=== PATIENT | female | born 1960 | race Caucasian/White ===

== ENCOUNTER 2016-12-25 08:36 | Emergency (ER) | payer BC ==
[~2016-12-25] VITALS: Ht 167.6 cm; Wt 74.0 kg
[~2016-12-25 08:36] MED LIST: AMLO-218 PO; CLON-379 PO; NORVASC PO
[2016-12-25 08:40] VITALS: Ht 167.6 cm; Wt 74.0 kg
[2016-12-25] MEDS ORDERED: ASPIRIN 325 MG TAB PO STA (08:48)
[2016-12-25] MEDS ORDERED: NITROGLYCERIN (SL) 0.4 MG TAB SL ONE (09:00)
--- NOTE | 2016-12-25 09:12 | RADRPT ---
PROCEDURE: XR Chest. CLINICAL INDICATION: Chest Pain. TECHNIQUE: Single frontal view of the chest was obtained. COMPARISON: None. FINDINGS: The heart and mediastinum are within normal limits. The lungs are clear. The aortic arch is calcified. There is no significant pleural effusion or pneumothorax. IMPRESSION: No focal infiltrates or effusions. Aortic atherosclerosis. RPTAT: EE Physician [place] Date Time Electronically viewed and signed by Fidencio Thompson Physician on 12/25/2016 09:11 /
[2016-12-25 09:28] LABS: ADD SCAN DIFF NO
[2016-12-25] MEDS ORDERED: AMLO2.5T2 PO (09:29)
[2016-12-25 09:31] LABS: BASOPHIL # 0.1 10^3/ul (0.0-0.1); BASOPHILS % 0.8 % (0.0-2.0); EOSINOPHILS # 0.1 10^3/ul (0.0-0.5); EOSINOPHILS % 1.5 % (0.0-7.0); HEMATOCRIT 46.6 % (37.0-47.0); HEMOGLOBIN 15.7 g/dl (12.0-16.0); LYMPHOCYTES # 2.6 10^3/ul (0.8-2.9); LYMPHOCYTES % 38.9 % (15.0-51.0); MEAN CORPUSCULAR HEMOGLOBIN 30.8 pg (29.0-33.0); MEAN CORPUSCULAR HGB CONC 33.7 g/dl (32.0-37.0); MEAN CORPUSCULAR VOLUME 91.4 fl (82.0-101.0); MEAN PLATELET VOLUME 10.4 fl (7.4-10.4); MONOCYTE # 0.5 10^3/ul (0.3-0.9); MONOCYTES % 7.6 % (0.0-11.0); NEUTROPHIL # 3.3 10^3/ul (1.6-7.5); PLATELET COUNT 299 10^3/UL (140-415); RED CELL DISTRIBUTION WIDTH 12.5 % (11.5-14.5); WHITE BLOOD COUNT 6.6 10^3/ul (4.8-10.8)
[2016-12-25 09:39] LABS: INR 0.85; PROTIME 11.6 Sec (12.2-14.2); PT RATIO 0.9
[2016-12-25 09:40] LABS: PARTIAL THROMBOPLASTIN TIME 29.4 Sec (25.0-35.0)
[2016-12-25 09:42] LABS: CHLORIDE 100 mmol/L (97-110); POTASSIUM 3.6 mmol/L (3.5-5.1); SODIUM 141 mmol/L (135-144)
[2016-12-25 09:45] LABS: ANION GAP 17 (8-16); CARBON DIOXIDE 28 mmol/L (21-31); CREATININE 0.64 mg/dl (0.44-1.00)
[2016-12-25 09:46] LABS: BLOOD UREA NITROGEN 16 mg/dl (7-20); CREATINE KINASE 51 IU/L (23-200); GLUCOSE 108 mg/dl (70-220)
[2016-12-25 09:53] LABS: CK-MB 1.09 ng/ml (0.0-2.4)
[2016-12-25 10:06] LABS: TROPONIN-I < 0.012 ng/ml (0.00-0.12)
[2016-12-25] MEDS ORDERED: RANI150T9 PO (10:27)
[2016-12-25] MEDS ORDERED: HYD25 PO (10:30)
--- NOTE | 2016-12-25 10:34 | ERD ---
ER Documentation Chief Complaint Date/Time DATE: 12/25/16 TIME: 10:30 Chief Complaint non radiating chest pain,pressure like.high blood pressure HPI This 56-year-old female presents emergency room with central substernal chest pressure that does not radiate, believe she had shortness of breath briefly. Denies nausea vomiting, fever and chills. Noticed the pain when she will come up this morning between 6 and 6:30. She's had the pain for 3 hours straight now. Her only other medical problem is hypertension for which she was on 10 of amlodipine but her doctor to reduce the dose to 2.5 mg daily. ROS All systems reviewed and are negative except as per history of present illness. Medications Home Meds Active Scripts Hydrochlorothiazide* (Hydrochlorothiazide*) 25 Mg Tab, 25 MG PO DAILY, #30 TAB Prov:TREVON RUSHING DO 12/25/16 Ranitidine Hcl* (Zantac*) 150 Mg Tablet, 150 MG PO BID Y for EPIGASTRIC PAIN, # 30 TAB Prov:TREVON RUSHING DO 12/25/16 Reported Medications Amlodipine Besylate* (Norvasc*) 2.5 Mg Tablet, 2.5 MG PO DAILY, TAB 12/25/16 Discontinued Reported Medications Clonidine Hcl* (Clonidine Hcl*) 0.1 Mg Tab, 0.1 MG PO DAILY 02/19/13 [Norvasc] No Conflict Check, 10 MG PO DAILY 02/19/13 Discontinued Scripts Amlodipine Besylate* (Norvasc*) 10 Mg Tablet, 10 MG PO DAILY, #30 TAB Prov:CAMILLE BURNS MD 07/07/16 Allergies Allergies: Coded Allergies: No Known Allergies (Verified Allergy, Unknown, 12/25/16) PMhx/Soc History of Surgery: Yes (HYSTEROSCOPY, APPENDECTOMY, D&C) Anesthesia Reaction: No Hx Neurological Disorder: No Hx Respiratory Disorders: No Hx Cardiac Disorders: Yes (HTN, HIGH CHOLESTEROL) Hx Psychiatric Problems: No Hx Miscellaneous Medical Probl: No Hx Alcohol Use: No Hx Substance Use: No Hx Tobacco Use: No Smoking Status: Never smoker Physical Exam Vitals Vital Signs Date Time Temp Pulse Resp B/P Pulse Ox O2 Delivery O2 Flow Rate FiO2 12/25/16 09:21 63 15 193/116 100 Room Air 12/25/16 08:40 98.1 64 18 206/108 98 Physical Exam Const: [] No distress Head: Atraumatic Eyes: Normal Conjunctiva ENT: Normal External Ears, Nose and Mouth. Neck: Full range of motion..~ No meningismus. Resp: Clear to auscultation bilaterally Cardio: Regular rate and rhythm, no murmurs Abd: Soft, non tender, non distended. Normal bowel sounds Skin: No petechiae or rashes Back: No midline or flank tenderness Ext: No cyanosis, or edema Neur: Awake and alert Psych: Normal Mood and Affect Result Diagram: 12/25/1690412/25/16904 Results 24 hrs Laboratory Tests Test 12/25/16 09:05 White Blood Count 6.610^3/ul Red Blood Count 5.1010^6/ul Hemoglobin 15.7g/dl Hematocrit 46.6% Mean Corpuscular Volume 91.4fl Mean Corpuscular Hemoglobin 30.8pg Mean Corpuscular Hemoglobin Concent 33.7g/dl Red Cell Distribution Width 12.5% Platelet Count 95449^3/UL Mean Platelet Volume 10.4fl Neutrophils % 51.0% Lymphocytes % 38.9% Monocytes % 7.6% Eosinophils % 1.5% Basophils % 0.8% Nucleated Red Blood Cells % 0.0/100WBC Neutrophils # 3.310^3/ul Lymphocytes # 2.610^3/ul Monocytes # 0.510^3/ul Eosinophils # 0.110^3/ul Basophils # 0.110^3/ul Nucleated Red Blood Cells # 0.010^3/ul Prothrombin Time 11.6Sec Prothrombin Time Ratio 0.9 INR International Normalized Ratio 0.85 Activated Partial Thromboplast Time 29.4Sec Sodium Level 141mmol/L Potassium Level 3.6mmol/L Chloride Level 100mmol/L Carbon Dioxide Level 28mmol/L Anion Gap 17 Blood Urea Nitrogen 16mg/dl Creatinine 0.64mg/dl Glucose Level 108mg/dl Calcium Level 10.0mg/dl Creatine Kinase 51IU/L Creatine Kinase Index 2.1 Creatinine Kinase MB (Mass) 1.09ng/ml Troponin I < 0.012ng/ml Current Medications Medications (Trade) Dose Ordered Sig/Bia Route PRN Reason Start Time Stop Time Status Last Admin Dose Admin Aspirin (Aspirin) 325 mg ONCE STAT PO 12/25/16 08:48 12/25/16 08:52 DC 12/25/16 09:10 Nitroglycerin (Nitroglycerin (Sl Tab) 0.4 Mg) 1 tab ONCE ONCE SL 12/25/16 09:00 12/25/16 09:01 DC 12/25/16 09:10 Procedures/MDM Chest pain relieved by nitroglycerin with a concerning story. She was given 325 mg aspirin as well as 3 nitroglycerin which helped reduce her extremely high blood pressure. She had a nonischemic EKG and a negative troponin. Informed her that the troponin may have not had time to rise and the blood yet if she did have a cardiac injury. She states that she deficit does not want stay in the hospital. Informed her that this may been a cardiac injury as it was relieved by nitroglycerin. She states that she will return if she has any return of chest pain. 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 Primary care follow-up in 1-2 days and instructions to obtain an echocardiogram through her primary care doctor as soon as possible. EKG interpretation sinus bradycardia rate of 58, normal axis, normal intervals, no ST or T-wave changes concerning for acute ischemia. Neck monitor interpretation: Normal sinus rhythm without arrhythmia Chest x-ray interpretation: No acute process, I see widened mediastinum, no pneumothorax, no infiltrates, no fractures. Departure Diagnosis: Primary Impression: Uncontrolled hypertension Additional Impression: Chest pain Condition: Stable Patient Instructions: Chest Pain, Uncertain Cause, Hypertension, Established, Out Of Control Additional Instructions: Call your primary care doctor TOMORROW for an appointment during the next 1-2 days. Obtain an appointment for an ECHOCARDIOGRAM as soon as possible. See the doctor sooner or return here if your condition worsens before your appointment time. TREVON RUSHING DO Dec 25, 2016 10:34
[2016-12-25 10:49] VITALS: BP 197/97; PULSE 57; RESP 17
== END 2016-12-25 10:52 | disposition home or self-care (01) ==
LOC: E/R 08:36
DX: I10 Essential (primary) hypertension (principal); R40.2142 Coma scale, eyes open, spontaneous, at arrival to emergency department; R40.2252 Coma scale, best verbal response, oriented, at arrival to emergency department; R40.2362 Coma scale, best motor response, obeys commands, at arrival to emergency department
CPT/HCPCS: 36415; 71010; 80048; 82550; 82553; 84484; 85025; 85610; 85730; 93005